=== PATIENT | female | born 1995 | race American Indian/Alaskan Native ===

== ENCOUNTER 2017-09-18 17:21 | Emergency (ER) | payer BC ==
[2017-09-18 19:38] LABS: HCG Qualitative,Urine Positive (Negative)
[2017-09-18 19:40] LABS: Bacteria,Urine 1+ /HPF (Negative); Bilirubin,Urine NEG (Negative); Blood,Urine LG (Negative); Color,Urine Red (Yellow); Mucus,Urine FEW /HPF; RBC,Urine > 182.0 /HPF (0.0-6.0); Urobilinogen,Urine < 2.0 mg/dL (<2.0)
--- NOTE | 2017-09-18 20:16 | Emergency Department Report ---
ED Female HPI - General Chief complaint: Abdominal Pain Stated complaint: 2MONTHS /BLEEDING Time Seen by Provider: 09/18/17 20:02 Source: patient, family Mode of arrival: Ambulatory Limitations: No Limitations - History of Present Illness Initial comments: This is a 22-year-old female who is unknown to this provider previously, she reports being 1, para 0, and her last menstrual period was July 27. She reports having follow-up this Sunday with her private outpatient [employer] doctor, otherwise has not had any care. The patient presents to the ER with a complaint of nontraumatic crampy vaginal bleeding, which started earlier on today. She reports that shortly thereafter, she went to the bathroom, and believes that she expelled the products of conception. Her pain is achy and crampy, does not radiate anywhere, increases with palpation and decreases with rest. She denies headache, neck pain, chest pain, shortness of breath, irritative/obstructive urinary symptoms. MD Complaint: vaginal bleeding, pelvic pain -: Sudden Location: suprapubic Radiation: non-radiating Severity: mild, moderate Quality: cramping Consistency: intermittent Improves with: other (rest) Worsens with: movement Are you Now?: Yes Associated Symptoms: vaginal bleeding, loss of appetite. denies: vaginal discharge, abdominal pain, nausea/vomiting, fever/chills, headaches, dysuria, hematuria, rash, seizure, shortness of breath, syncope, weakness - Related Data Sexually active: Yes : 1 Para: 0 Home Medications Medication Instructions Recorded Confirmed Last Taken Pnv,Calcium 72/Iron/Folic Acid 2 each PO DAILY 09/18/17 09/18/17 09/18/17 [ Plus Tablet] Previous Rx's Medication Instructions Recorded Last Taken Type Acetaminophen [Tylenol Arthritis] 650 mg PO Q6HR PRN #30 tablet.er 09/18/17 Unknown Rx Allergies Allergy/AdvReac Type Severity Reaction Status Date / Time aspirin Allergy Hives Verified 09/18/17 17:23 ED Review of Systems ROS: Stated complaint: 2MONTHS /BLEEDING Other details as noted in HPI Constitutional: denies: fever Eyes: denies: eye discharge ENT: denies: epistaxis Respiratory: denies: cough Cardiovascular: denies: chest pain Gastrointestinal: abdominal pain Genitourinary: abnormal menses. denies: dysuria Musculoskeletal: denies: back pain Skin: denies: lesions Neurological: weakness Psychiatric: anxiety ED Past Medical Hx - Past Medical History Previous Medical History?: No - Surgical History Past Surgical History?: No - Social History Smoking Status: Never Smoker Substance Use Type: None - Medications Home Medications: Home Medications Medication Instructions Recorded Confirmed Last Taken Type Acetaminophen [Tylenol Arthritis] 650 mg PO Q6HR PRN #30 tablet.er 09/18/17 Unknown Rx Pnv,Calcium 72/Iron/Folic Acid 2 each PO DAILY 09/18/17 09/18/17 09/18/17 History [ Plus Tablet] ED Physical Exam - General Limitations: No Limitations General appearance: alert, anxious, in distress - Head Head exam: Present: atraumatic, normocephalic - Eye Eye exam: Present: normal appearance, EOMI. Absent: nystagmus - ENT ENT exam: Present: normal exam, normal orophraynx, mucous membranes moist, normal external ear exam - Neck Neck exam: Present: normal inspection, full ROM. Absent: tenderness, meningismus - Respiratory Respiratory exam: Present: normal lung sounds bilaterally. Absent: respiratory distress - Cardiovascular Cardiovascular Exam: Present: normal rhythm, bradycardia, normal heart sounds. Absent: tachycardia, irregular rhythm, systolic murmur, diastolic murmur, rubs, gallop - GI/Abdominal GI/Abdominal exam: Present: soft, normal bowel sounds. Absent: distended, tenderness, guarding, rebound, rigid, pulsatile mass - Extremities Exam Extremities exam: Present: normal inspection, full ROM, normal capillary refill. Absent: tenderness, pedal edema, joint swelling, calf tenderness - Back Exam Back exam: Present: normal inspection, full ROM. Absent: tenderness, CVA tenderness (R), paraspinal tenderness, vertebral tenderness - Neurological Exam Neurological exam: Present: alert, oriented X3, CN II-XII intact, normal gait, other (Extraocular movements intact. Tongue midline. No facial droop. Facial sensation intact to light touch in the V1, V2, V3 distribution bilaterally. 5 and 5 strength in 4 extremities.. Sensation is intact to light touch in 4 extremities.). Absent: motor sensory deficit - Psychiatric Psychiatric exam: Present: normal affect, normal mood - Skin Skin exam: Present: warm, dry, intact, normal color. Absent: rash ED Course Vital Signs 09/18/17 09/18/17 09/18/17 17:25 22:59 23:39 Temperature 98.7 F 97.6 F Pulse Rate 60 61 Respiratory 16 16 Rate Blood Pressure 110/76 Blood Pressure 110/55 110/62 [Right] O2 Sat by Pulse 100 100 Oximetry - Reevaluation(s) Reevaluation #1: 09/18/17 21:06 Differential diagnosis, including but not limited to: Miscarriage, threatened miscarriage, incomplete miscarriage, retained products of conception Assessment and plan: 22-year-old female who reports being approximately 2 months , has not had care outside of [id number] with probable miscarriage. She is afebrile with reassuring vital signs , abdomen is not tender or distended. Hemoglobin, hematocrit within appropriate limits, quantitative hCG pending, type and screen pending, pelvic ultrasound pending. Reevaluation #2: 09/18/17 23:50 The pressure remains in the low 100s. Belly soft on repeat exam. As expected ultrasound shows no evidence of intrauterine or extrauterine , which is consistent with patient's reported history of passing out the products of conception. 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 She prefers to have the gynecologic examination performed by her private cruise director. ED Medical Decision Making - Lab Data Result diagrams: 09/18/17 20:26 Vital Signs 09/18/17 17:25 Temperature 98.7 F Pulse Rate 60 Respiratory 16 Rate Blood Pressure 110/76 O2 Sat by Pulse 100 Oximetry Lab Results 09/18/17 09/18/17 Range/Units 19:25 20:26 WBC 8.9 (4.5-11.0) K/mm3 RBC 4.02 (3.65-5.03) M/mm3 Hgb 12.1 (10.1-14.3) gm/dl Hct 36.2 (30.3-42.9) % MCV 90 (79-97) fl MCH 30 (28-32) pg MCHC 34 (30-34) % RDW 14.2 (13.2-15.2) % Plt Count 186 (140-440) K/mm3 Urine Color Red (Yellow) Urine Turbidity Clear (Clear) Urine pH 6.0 (5.0-7.0) Ur Specific [place] 1.009 (1.003-1.030) Urine Protein 100 mg/dl (Negative) mg/dL Urine Glucose (UA) Neg (Negative) mg/dL Urine Ketones 20 (Negative) mg/dL Urine Blood Lg (Negative) Urine Nitrite Neg (Negative) Ur Reducing Substances Not Reportable Urine Bilirubin Neg (Negative) Urine Ictotest Not Reportable Urine Urobilinogen < 2.0 (<2.0) mg/dL Ur Leukocyte Esterase Sm (Negative) Urine WBC (Auto) 26.0 H (0.0-6.0) /HPF Urine RBC (Auto) > 182.0 (0.0-6.0) /HPF U Epithel Cells (Auto) 2.0 (0-13.0) /HPF Urine Bacteria (Auto) 1+ (Negative) /HPF Urine Mucus Few /HPF Urine HCG, Qual Positive A (Negative) Vital Signs 09/18/17 09/18/17 17:25 22:59 Temperature 98.7 F 97.6 F Pulse Rate 60 61 Respiratory 16 16 Rate Blood Pressure 110/76 Blood Pressure 110/55 [Right] O2 Sat by Pulse 100 100 Oximetry Lab Results 09/18/17 09/18/17 09/18/17 Range/Units 19:25 20:26 20:26 WBC 8.9 (4.5-11.0) K/mm3 RBC 4.02 (3.65-5.03) M/mm3 Hgb 12.1 (10.1-14.3) gm/dl Hct 36.2 (30.3-42.9) % MCV 90 (79-97) fl MCH 30 (28-32) pg MCHC 34 (30-34) % RDW 14.2 (13.2-15.2) % Plt Count 186 (140-440) K/mm3 HCG, Quant 1190 H (0-4) mIU/mL Urine Color Red (Yellow) Urine Turbidity Clear (Clear) Urine pH 6.0 (5.0-7.0) Ur Specific [place] 1.009 (1.003-1.030) Urine Protein 100 mg/dl (Negative) mg/dL Urine Glucose (UA) Neg (Negative) mg/dL Urine Ketones 20 (Negative) mg/dL Urine Blood Lg (Negative) Urine Nitrite Neg (Negative) Ur Reducing Substances Not Reportable Urine Bilirubin Neg (Negative) Urine Ictotest Not Reportable Urine Urobilinogen < 2.0 (<2.0) mg/dL Ur Leukocyte Esterase Sm (Negative) Urine WBC (Auto) 26.0 H (0.0-6.0) /HPF Urine RBC (Auto) > 182.0 (0.0-6.0) /HPF U Epithel Cells (Auto) 2.0 (0-13.0) /HPF Urine Bacteria (Auto) 1+ (Negative) /HPF Urine Mucus Few /HPF Urine HCG, Qual Positive A (Negative) Blood Type Antibody Screen 09/18/17 Range/Units 20:28 WBC (4.5-11.0) K/mm3 RBC (3.65-5.03) M/mm3 Hgb (10.1-14.3) gm/dl Hct (30.3-42.9) % MCV (79-97) fl MCH (28-32) pg MCHC (30-34) % RDW (13.2-15.2) % Plt Count (140-440) K/mm3 HCG, Quant (0-4) mIU/mL Urine Color (Yellow) Urine Turbidity (Clear) Urine pH (5.0-7.0) Ur Specific [place] (1.003-1.030) Urine Protein (Negative) mg/dL Urine Glucose (UA) (Negative) mg/dL Urine Ketones (Negative) mg/dL Urine Blood (Negative) Urine Nitrite (Negative) Ur Reducing Substances Urine Bilirubin (Negative) Urine Ictotest Urine Urobilinogen (<2.0) mg/dL Ur Leukocyte Esterase (Negative) Urine WBC (Auto) (0.0-6.0) /HPF Urine RBC (Auto) (0.0-6.0) /HPF U Epithel Cells (Auto) (0-13.0) /HPF Urine Bacteria (Auto) (Negative) /HPF Urine Mucus /HPF Urine HCG, Qual (Negative) Blood Type AB POSITIVE Antibody Screen Negative - Radiology Data Radiology results: report reviewed, image reviewed Print Report Referring Physician: CELESTE GAN Patient Name: TALIA SHUKLA Date of : 1995 Sex: Female Report Date: 2017-09-18 Report Status: Finalized Findings [facility] [address] [place] [address] Ultrasound Report Signed Patient: TALIA SHUKLA MR#: [id number] : 1995 Acct:[id number] Age/Sex: 22 / F ADM Date: 09/18/17 Loc: ED Attending Dr: Ordering Physician: CELESTE GAN MD Date of Service: 09/18/17 Procedure(s): US OB transvaginal Accession Number(s): [id number] cc: CELESTE GAN MD FINAL REPORT PROCEDURE: US OB TRANSVAGINAL TECHNIQUE: Real-time transvaginal sonography of the uterus, placenta, amniotic fluid, adnexa, and fetus was performed with image documentation. Measurements were obtained to determine age/size. M-mode Doppler was used to document heartbeat. CPT 43870 HISTORY: vag bleed COMPARISON: No prior studies are available for comparison. FINDINGS: There is no intrauterine . The endometrium is thickened at 6.9 millimeters. There is no endometrial fluid. Uterus measures 8.9 x 4.1 x 6.1 centimeters. Left ovary measures 2 x 2.3 x 2.4 centimeters. Right ovary measures 2.6 x 1.4 x 1.8 centimeters. There is no ovarian mass. There is no free pelvic fluid. IMPRESSION: There is no evidence of intrauterine or ectopic . Transcribed By: CO Dictated By: MOLLY NIETO MD Electronically Authenticated By: MOLLY NIETO MD Signed Date/Time: 09/18/17 8114 Critical care attestation.: If time is entered above; I have spent that time in minutes in the direct care of this critically ill patient, excluding procedure time. ED Disposition Clinical Impression: Miscarriage Disposition: DC-01 TO HOME OR SELFCARE Is pt being admited?: No Does the pt Need Aspirin: No Condition: Stable Instructions: Spontaneous Miscarriage (ED) Additional Instructions: Rest, and avoid heavy lifting. Avoid strenuous physical activity. Do not have sex or sexual activity until cleared by your private [employer] physician. Follow- up with an [employer] physician by this Sunday for repeat evaluation. Return to the ER right away with new pain, worsened pain, migration of pain, bleeding more than 2 pads soaked per hour, lightheadedness, loss of consciousness, projectile vomiting, change in mental status. For the patient's convenience, local [facility] practices have been listed. Take the pain medication as needed/directed. Referrals: [facility] [Primary Care Provider] - 3-5 Days [facility] [Provider Group] - 3-5 Days [facility] [Provider Group] - 3-5 Days [facility] [Provider Group] - 3-5 Days Forms: Work/School Release Form(ED)
[2017-09-18 21:02] LABS: Hematocrit 36.2 % (30.3-42.9); Hemoglobin 12.1 gm/dl (10.1-14.3); Mean Corpuscular HGB Conc 34 % (30-34); Mean Corpuscular Hemoglobin 30 pg (28-32); Mean Corpuscular Volume 90 fl (79-97); Platelet Count 186 K/mm3 (140-440); Red Blood Count 4.02 M/mm3 (3.65-5.03); Red Cell Distribution Width 14.2 % (13.2-15.2)
--- NOTE | 2017-09-18 23:18 | Ultrasound Report ---
FINAL REPORT PROCEDURE: US OB TRANSVAGINAL TECHNIQUE: Real-time transvaginal sonography of the uterus, placenta, amniotic fluid, adnexa, and fetus was performed with image documentation. Measurements were obtained to determine age/size. M-mode Doppler was used to document heartbeat. CPT 58815 HISTORY: vag bleed COMPARISON: No prior studies are available for comparison. FINDINGS: There is no intrauterine . The endometrium is thickened at 6.9 millimeters. There is no endometrial fluid. Uterus measures 8.9 x 4.1 x 6.1 centimeters. Left ovary measures 2 x 2.3 x 2.4 centimeters. Right ovary measures 2.6 x 1.4 x 1.8 centimeters. There is no ovarian mass. There is no free pelvic fluid. IMPRESSION: There is no evidence of intrauterine or ectopic .
--- NOTE | 2017-09-18 23:18 | Ultrasound Report ---
FINAL REPORT PROCEDURE: US OB less than 14 weeks TECHNIQUE: Real-time transabdominal sonography of the uterus, placenta, amniotic fluid, adnexa, and fetus was performed with image documentation. Measurements were obtained to determine age/size. M-mode Doppler was used to document heartbeat. HISTORY: vag bleed COMPARISON: No prior studies are available for comparison. FINDINGS: There is no intrauterine . The endometrium is thickened at 6.9 millimeters. There is no endometrial fluid. Uterus measures 8.9 x 4.1 x 6.1 centimeters. Left ovary measures 2 x 2.3 x 2.4 centimeters. Right ovary measures 2.6 x 1.4 x 1.8 centimeters. There is no ovarian mass. There is no free pelvic fluid. IMPRESSION: There is no evidence of intrauterine or ectopic .
[2017-09-18 23:39] VITALS: BP 110/62
== END 2017-09-18 23:58 | disposition home or self-care (01) ==
LOC: ED 17:21
DX: O03.9 Complete or unspecified spontaneous abortion without complication (principal); Z3A.01 Less than 8 weeks gestation of pregnancy; Z88.6 Allergy status to analgesic agent
CPT/HCPCS: 36415; 76801; 76817; 81001; 81025; 84702; 85027; 86850; 86900; 86901; 87086

== ENCOUNTER 2017-12-01 23:25 | Emergency (ER) | payer BC ==
[2017-12-02 00:05] VITALS: BP 111/60
[2017-12-02 01:01] LABS: Basophils % (Auto) 0.4 % (0.0-1.8); Eosinophils # (Auto) 0.1 K/mm3 (0.0-0.4); Eosinophils % (Auto) 1.3 % (0.0-4.3); Hematocrit 35.7 % (30.3-42.9); Hemoglobin 12.5 gm/dl (10.1-14.3); Lymphocytes # (Auto) 1.9 K/mm3 (1.2-5.4); Lymphocytes % (Auto) 33.8 % (13.4-35.0); Mean Corpuscular HGB Conc 35 % (30-34); Mean Corpuscular Hemoglobin 32 pg (28-32); Mean Corpuscular Volume 90 fl (79-97); Monocytes # (Auto) 0.4 K/mm3 (0.0-0.8); Platelet Count 241 K/mm3 (140-440); Red Blood Count 3.95 M/mm3 (3.65-5.03); Red Cell Distribution Width 13.3 % (13.2-15.2)
[2017-12-02 01:15] LABS: BUN/Creatinine Ratio 10; Blood Urea Nitrogen 8 mg/dL (7-17); Calcium 9.3 mg/dL (8.4-10.2); Hemolysis Index 2
== END 2017-12-02 01:42 | disposition left against medical advice (07) ==
LOC: ED 23:25
DX: R07.89 Other chest pain (principal); Z53.21 Procedure and treatment not carried out due to patient leaving prior to being seen by health care provider
CPT/HCPCS: 36415; 80048; 84484; 84703; 85025; 93005; 93010